=== PATIENT | male | born 1980 | race Caucasian/White ===

== ENCOUNTER 2022-01-23 11:07 | Day surgery (SDC) | payer OTHER ==
[~2022-01-23] VITALS: Ht 170.2 cm; Wt 90.7 kg
== END 2022-01-23 12:15 | disposition home or self-care (01) ==
LOC: MOR 11:07 → MMU 11:08 → MOR 12:15
PROVIDERS: ATTEND Internal Medicine Gastroenterology
DX: R07.0 Pain in throat (principal); Z20.822 Contact with and (suspected) exposure to COVID-19; Z88.0 Allergy status to penicillin; Z53.8 Procedure and treatment not carried out for other reasons